=== PATIENT | male | born 1970 | race Caucasian/White ===

== ENCOUNTER 2016-11-22 18:42 | Emergency (ER) | payer BC ==
[~2016-11-22] VITALS: Ht 167.6 cm; Wt 82.5 kg
[2016-11-22 18:47] VITALS: Ht 167.6 cm; Wt 82.5 kg
--- NOTE | 2016-11-22 19:15 | RADRPT ---
PROCEDURE: Right thumb. CLINICAL INDICATION: Pain. TECHNIQUE: Three views including PA, lateral and oblique views of the right thumb were obtained. COMPARISON: None. FINDINGS: There is a small fracture of the base of the first proximal phalanx. There is no dislocation. Bone mineralization is within normal limits. There is no radiopaque foreign body or abnormal calcificat ion. IMPRESSION: Small fracture of the base of the first proximal phalanx. .Jonathan Ruggiero MD, Date Time Electronically viewed and signed by .Jonathan Ruggiero MD, MD on 11/22/2016 19:14 .T/
--- NOTE | 2016-11-22 19:40 | ERD ---
ER Documentation Chief Complaint Date/Time DATE: 11/22/16 TIME: 19:36 Chief Complaint right thumb pain HPI This 45-year-old male presents with right thumb pain for last month. Started with hyperextension injury skiing. He says that is slowly improving but denies any restricted range of motion or weakness. Is requesting x-ray given the duration of time it takes to heal. Denies any fevers redness, additional symptoms. 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 ROS All systems reviewed and are negative except as per history of present illness. Medications Home Meds No Active Prescriptions or Reported Meds Allergies Allergies: Coded Allergies: No Known Allergy (Unverified , 11/22/16) PMhx/Soc Medical and Surgical Hx: pt denies Medical Hx History of Surgery: Yes (LT [facility] EYE SURGERY) Anesthesia Reaction: No Hx Neurological Disorder: No Hx Respiratory Disorders: No Hx Cardiac Disorders: No Hx Psychiatric Problems: No Hx Miscellaneous Medical Probl: No Hx Alcohol Use: No Hx Substance Use: No Hx Tobacco Use: No Smoking Status: Never smoker Physical Exam Vitals Vital Signs Date Time Temp Pulse Resp B/P Pulse Ox O2 Delivery O2 Flow Rate FiO2 11/22/16 18:47 97.8 88 20 130/73 100 Physical Exam Const: [] Alert, [id number] per Head: Atraumatic Eyes: Normal Conjunctiva ENT: Normal External Ears, Nose and Mouth. Neck: Full range of motion..~ No meningismus. Resp: Clear to auscultation bilaterally Cardio: Regular rate and rhythm, no murmurs Abd: Soft, non tender, non distended. Normal bowel sounds Skin: No petechiae or rashes Back: No midline or flank tenderness Ext: No cyanosis, or edema. Patient has full range of motion of the affected thumb. THERE IS mild tenderness on the first metacarpal phalangeal joint area of the left hand. Neur: Awake and alert Psych: Normal Mood and Affect Procedures/MDM X-ray right thumb 2V Interpreted by me: Bones: There is an avulsion fracture of the base of the proximal phalanx Joints: No dislocation Foreign body: None. Impression-avulsion fracture the base of the proximal phalanx of the left thumb. Patient has a thumb spica brace at home. He is advised to use his brace and follow-up with hand surgeon or orthopedist. He is referred to local hand surgeon. He should recheck sooner for fevers, redness, new worsening symptoms. Patient shows no signs of bacterial infection, neurovascular compromise, tendon or neurologic deficits. Departure Diagnosis: Primary Impression: Finger fracture, left Encounter type: initial encounter Fracture type: closed Qualified Code: S62.609A - Finger fracture, left, closed, initial encounter Condition: Stable Patient Instructions: Finger and Toe Fractures (Broken Finger or Toe) Referrals: ROSA VELEZ MD Additional Instructions: Use the rigid thumb spica brace. There is a fracture of the proximal phalanx in the area of pain. See primary doctor, orthopedist or hand surgeon for further evaluation and management per ROLAN HANDLEY MD Nov 22, 2016 19:40
== END 2016-11-22 19:45 | disposition home or self-care (01) ==
LOC: FTE 18:42
DX: S62.202A Unspecified fracture of first metacarpal bone, left hand, initial encounter for closed fracture (principal); X50.9XXA Other and unspecified overexertion or strenuous movements or postures, initial encounter; Y92.9 Unspecified place or not applicable
CPT/HCPCS: 73140

== ENCOUNTER 2017-11-05 16:37 | Emergency (ER) | END 2017-11-05 17:09 | disposition home or self-care (01) ==

== ENCOUNTER 2018-11-26 09:15 | Emergency (ER) | payer BC ==
[~2018-11-26] VITALS: Ht 172.7 cm; Wt 79.0 kg
[~2018-11-26 09:15] MED LIST: IBUP-1542 PO; OSEL75CA23 PO
[2018-11-26 09:18] VITALS: BP 154/74; PULSE 75; RESP 18; Ht 172.7 cm; Wt 79.0 kg
--- NOTE | 2018-11-26 10:48 | ERD ---
ER Documentation Chief Complaint Chief Complaint left thumb pain s/p skiing HPI 47-year-old [id number] male presents with left thumb pain after injuring it skiing 3 days ago. He fell to his side this time on his fall. Patient is concerned because he has a history of fracture of his right thumb due to skiing as well in the past. There is no restricted range of motion or weakness. He is concerned because he has upcoming [facility] [facility] and scheduled skiing events. ROS All systems reviewed and are negative except as per history of present illness. Medications Home Meds Active Scripts Ibuprofen* (Motrin*) 600 Mg Tab, 600 MG PO Q8, #30 TAB Prov:COLEEN IRVIN MD 11/05/17 Oseltamivir Phosphate* (Tamiflu*) 75 Mg Capsule, 75 MG PO BID for 5 Days, CAP Prov:COLEEN IRVIN MD 11/05/17 Allergies Allergies: Coded Allergies: No Known Allergy (Unverified , 11/05/17) PMhx/Soc History of Surgery: Yes ([facility], LT EYE SURGERY) Anesthesia Reaction: No Hx Neurological Disorder: No Hx Respiratory Disorders: No Hx Cardiac Disorders: No Hx Psychiatric Problems: No Hx Miscellaneous Medical Probl: No Hx Alcohol Use: No Hx Substance Use: No Hx Tobacco Use: No FmHx Family History: No diabetes, No coronary disease, No other Physical Exam Vitals Vital Signs Date Temp Pulse Resp B/P (MAP) Pulse Ox O2 O2 Flow FiO2 Time Delivery Rate 11/26/18 98.6 75 18 154/74 100 09:18 (100) Physical Exam Const: No acute distress Head: Atraumatic Eyes: Normal Conjunctiva ENT: Normal External Ears, Nose and Mouth. Neck: Full range of motion. No meningismus. Resp: Clear to auscultation bilaterally Cardio: Regular rate and rhythm, no murmurs Abd: Soft, non tender, non distended. Normal bowel sounds Skin: No petechiae or rashes Back: No midline or flank tenderness Ext: No cyanosis, or edema. Tenderness at the left thumb MCP joint. No restricted range of motion, weakness, deficits but no snuffbox tenderness. Neur: Awake and alert Psych: Normal Mood and Affect Procedures/MDM X-ray left thumb 2V Interpreted by me: Bones: No fracture Joints: No dislocation Foreign body: None. Impression-normal left thumb x-ray with only soft tissue swelling. Patient presents wearing a left thumb spica support. Patient was replaced in his left thumb spica support. There is no signs and symptoms of left thumb sprain without signs of fracture, dislocation, ischemia, deficits. We dis charged home with continued ice, NSAIDs, wrist support, primary care follow-up and return precautions. Should return for fevers, redness, new worsening symptoms or follow-up with orthopedist and primary care doctor as directed for persistent pain despite conservative treatment. Departure Diagnosis: Primary Impression: Injury of hand Encounter type: initial encounter Laterality: right Qualified Codes: S69.91XA - Unspecified injury of right wrist, hand and finger(s), initial encounter Condition: Stable Patient Instructions: Sprain Finger Referrals: NO PRIMARY,CARE PHYSICIAN (PCP) Additional Instructions: X-ray read as normal. Continue brace and ice. Recheck for new worsening symptoms with primary doctor, orthopedist. Okay to cancel [facility]. ROLAN HANDLEY MD Nov 26, 2018 10:48
== END 2018-11-26 11:14 | disposition home or self-care (01) ==
LOC: FTE 09:15
DX: S69.92XA Unspecified injury of left wrist, hand and finger(s), initial encounter (principal); W18.39XA Other fall on same level, initial encounter; Y92.9 Unspecified place or not applicable
CPT/HCPCS: 73140